=== PATIENT | female | born 1985 | race African-American/Black ===

== ENCOUNTER 2018-02-25 14:54 | Inpatient (IN) ==
[2018-02-25 15:58] LABS: Baso % (Auto) 0.5 % (0.0-2.0); Eos # (Auto) 0.1 th/mm3 (0.0-0.4); Eos % (Auto) 0.7 % (0.0-4.0); Hematocrit 39.9 % (35.0-46.0); Hemoglobin 13.8 gm/dL (11.6-15.3); Lymph # (Auto) 1.9 th/mm3 (1.0-4.8); Mean Corpuscular HGB Conc 34.7 % (32.0-36.0); Mean Corpuscular Volume 95.1 fL (80.0-100.0); Mean Platelet Volume 7.7 fL (7.0-11.0); Mono # (Auto) 0.6 th/mm3 (0.0-0.9); Mono % (Auto) 7.1 % (0.0-8.0); Neut # (Auto) 5.4 th/mm3 (1.8-7.7); Neut % (Auto) 67.7 % (16.0-70.0); Platelet Count 313 th/mm3 (150-450); Red Cell Distribution Width 12.5 % (11.6-17.2)
[2018-02-25 16:33] LABS: Albumin 4.5 g/dL (3.4-5.0); Anion Gap 8 meq/L (5-15); Aspartate Aminotransferase 24 U/L (15-37); Blood Urea Nitrogen 11 mg/dL (7-18); Calcium 8.8 mg/dL (8.5-10.1); Carbon Dioxide 28.3 meq/L (21.0-32.0); Chloride 106 meq/L (98-107); Glomerular Filtration Rate Greater Than 89 mL/min (>89); Glucose,Random 83 mg/dL (74-106); Magnesium 2.4 mg/dL (1.5-2.5); Sodium 142 meq/L (136-145)
[2018-02-25 16:43] LABS: Alanine Aminotransferase 36 U/L (10-53); Alkaline Phosphatase 79 U/L (45-117); Thyroid Stimulating Hormone 0.802 uIU/mL (0.358-3.740); Total Protein 8.2 g/dL (6.4-8.2)
--- NOTE | 2018-02-25 17:57 | ED ---
HPI General Chief Complaint: Psychiatric Symptoms Stated Complaint: Psych Eval/DBPD Time Seen by Provider: 02/25/18 16:09 Source: patient and other (Rodriguez act report) Mode of arrival: ambulatory Limitations: no limitations History of Present Illness HPI Narrative: 32-year-old female, with history of schizophrenia, presents to the emergency department under Rodriguez act. According to the Rodriguez act report the patient is unable to remember her name, does not know where she is or what year it is. Patient is diagnosed schizophrenic. And bipolar. She is not currently taking her prescribed medications. On my examination the patient is alert and oriented x4. She is staring, wide eyed. She is slow to answer questions. According to the nurse this is her normal behavior. She denies suicidal or homicidal ideations. Says she needs her meds to help with her schizophrenia. Denies illicit drug use, alcohol use. Denies hallucinations. Onset unknown. Duration most likely chronic. Symptoms are moderate to severe in severity. No known aggravating or relieving factors. Psychiatrist is Aris Bianchi. No known allergies. Patient denies any chest pain, shortness of breath, abdominal pain, nausea, vomiting, change in urine or stool. No other modifying factors or associated signs and symptoms. Related Data Home Medications Medication Instructions Recorded Confirmed hydroxyzine pamoate [Vistaril] 50 mg PO TID PRN 12/16/17 02/25/18 Previous Rx's Medication Instructions Recorded quetiapine [Seroquel] 200 mg PO BID #30 tab 12/16/17 Allergies Allergy/AdvReac Type Severity Reaction Status Date / Time No Known Allergies Allergy Verified 02/26/18 21:13 Review of Systems ROS: all other systems reviewed are negative [facility] Medical History Medical History Bipolar 1 disorder (Acute) Schizoaffective disorder (Acute) Social History Social History Substance History: Active Abuse Second Hand Smoke Exposure: No Smoking Status: Current every day smoker Tobacco Type: Cigarettes How Often Do You Have a Drink Containing Alcohol: Never Recent Travel in [facility] within the Last 8 Weeks: No Recent Out of Country Travel within the Last 8 Weeks: No Immunization History Tetanus Immunization: Unsure Exam Narrative Exam Narrative: GENERAL: Well-nourished, well-developed black female patient, in no acute distress; flat affect, wide eyed and staring SKIN: Warm and dry. HEAD: Atraumatic. Normocephalic. EYES: Pupils equal and round. ENT: Mucosa pink and moist. NECK: Supple. Trachea midline. CARDIOVASCULAR: Regular rate and rhythm. No murmur appreciated. RESPIRATORY: No accessory muscle use. Clear to auscultation. Breath sounds equal bilaterally. GASTROINTESTINAL: Abdomen soft, non-tender, nondistended. Hepatic and splenic margins not palpable. Bowel sounds are active 4 quadrants. MUSCULOSKELETAL: No obvious deformities. No clubbing. No cyanosis. No edema. BACK: No CVA tenderness. NEUROLOGICAL: Awake and alert. Oriented 4. No obvious cranial nerve deficits. Motor grossly within normal limits. Normal speech; slow to speak. Moves all extremities. 5/5 strength to all extremities. PSYCHIATRIC: No delusional thought processes. No hallucinations. Course Initial Documented Vital Signs Temperature 97.9 F 02/25/18 15:05 Pulse Rate 93 H 02/25/18 15:05 Respiratory Rate 18 02/25/18 15:05 Blood Pressure 115/72 02/25/18 15:05 Pulse Oximetry 98 02/25/18 15:05 Last Documented Vital Signs Temperature 98.7 F 02/28/18 06:00 Pulse Rate 100 H 02/28/18 06:00 Respiratory Rate 19 02/28/18 06:00 Blood Pressure 120/74 02/28/18 06:00 Pulse Oximetry 95 02/28/18 06:00 Medical Decision Making MDM Narrative Medical decision making narrative: Patient presents under a Rodriguez act. Physical examination and vital signs are essentially unremarkable. Patient has no medical complaints to report. Psych screen has been ordered. If the laboratory results are unremarkable, the patient will be medically cleared for psychiatric evaluation and disposition. Medical Screen Exam Complete: Yes Emergency Medical Condition: Yes Differential Diagnosis Differential Diagnosis: Schizophrenia, medication noncompliance, medical clearance for psychiatric evaluation Lab Data Result diagrams: 02/25/18 15:12 02/27/18 07:48 Lab Results 02/25/18 02/25/18 02/25/18 Range/Units 15:12 15:12 15:12 WBC 8.0 (4.0-11.0) th/mm3 RBC 4.20 (4.00-5.30) mil/mm3 Hgb 13.8 (11.6-15.3) gm/dL Hct 39.9 (35.0-46.0) % MCV 95.1 (80.0-100.0) fL MCH 33.0 (27.0-34.0) pg MCHC 34.7 (32.0-36.0) % RDW 12.5 (11.6-17.2) % Plt Count 313 (150-450) th/mm3 MPV 7.7 (7.0-11.0) fL Neut % (Auto) 67.7 (16.0-70.0) % Lymph % (Auto) 24.0 (9.0-44.0) % [place] % (Auto) 7.1 (0.0-8.0) % Eos % (Auto) 0.7 (0.0-4.0) % Baso % (Auto) 0.5 (0.0-2.0) % Neut # (Auto) 5.4 (1.8-7.7) th/mm3 Lymph # (Auto) 1.9 (1.0-4.8) th/mm3 [place] # (Auto) 0.6 (0.0-0.9) th/mm3 Eos # (Auto) 0.1 (0.0-0.4) th/mm3 Baso # (Auto) 0.0 (0.0-0.2) th/mm3 WBC Differential . Differential Comment Auto diff final Sodium (136-145) meq/L Potassium (3.5-5.1) meq/L Chloride (98-107) meq/L Carbon Dioxide (21.0-32.0) meq/L Anion Gap (5-15) meq/L BUN (7-18) mg/dL Creatinine (0.50-1.00) mg/dL Estimated GFR (>89) mL/min Random Glucose (74-106) mg/dL Hemoglobin A1c (4.3-6.0) % Calcium (8.5-10.1) mg/dL Magnesium (1.5-2.5) mg/dL Total Bilirubin (0.2-1.0) mg/dL AST (15-37) U/L ALT (10-53) U/L Alkaline Phosphatase (45-117) U/L Total Protein (6.4-8.2) g/dL Albumin (3.4-5.0) g/dL Triglycerides (42-150) mg/dL Cholesterol (120-200) mg/dL LDL Cholesterol, Calc (0-99) mg/dL HDL Cholesterol (40.0-60.0) mg/dL Cholesterol/HDL Ratio Ratio TSH (0.358-3.740) uIU/mL Beta HCG, Qual (0-5) mIU/mL Salicylates 2.4 L (2.8-20.0) mg/dL Urine Opiates Screen (Neg) Acetaminophen Less than 2.0 L (10.0-30.0) mcg/mL Ur Barbiturates Screen (Neg) Ur Amphetamines Screen (Neg) U Benzodiazepines Scrn (Neg) Urine Cocaine Screen (Neg) U Cannabinoids Screen (Neg) Serum Alcohol (0-5) mg/dL 02/25/18 02/25/18 02/25/18 Range/Units 15:12 15:12 15:40 WBC (4.0-11.0) th/mm3 RBC (4.00-5.30) mil/mm3 Hgb (11.6-15.3) gm/dL Hct (35.0-46.0) % MCV (80.0-100.0) fL MCH (27.0-34.0) pg MCHC (32.0-36.0) % RDW (11.6-17.2) % Plt Count (150-450) th/mm3 MPV (7.0-11.0) fL Neut % (Auto) (16.0-70.0) % Lymph % (Auto) (9.0-44.0) % [place] % (Auto) (0.0-8.0) % Eos % (Auto) (0.0-4.0) % Baso % (Auto) (0.0-2.0) % Neut # (Auto) (1.8-7.7) th/mm3 Lymph # (Auto) (1.0-4.8) th/mm3 [place] # (Auto) (0.0-0.9) th/mm3 Eos # (Auto) (0.0-0.4) th/mm3 Baso # (Auto) (0.0-0.2) th/mm3 WBC Differential Differential Comment Sodium 142 (136-145) meq/L Potassium 4.0 (3.5-5.1) meq/L Chloride 106 (98-107) meq/L Carbon Dioxide 28.3 (21.0-32.0) meq/L Anion Gap 8 (5-15) meq/L BUN 11 (7-18) mg/dL Creatinine 0.87 (0.50-1.00) mg/dL Estimated GFR Greater than 89 (>89) mL/min Random Glucose 83 (74-106) mg/dL Hemoglobin A1c (4.3-6.0) % Calcium 8.8 (8.5-10.1) mg/dL Magnesium 2.4 (1.5-2.5) mg/dL Total Bilirubin 0.9 (0.2-1.0) mg/dL AST 24 (15-37) U/L ALT 36 (10-53) U/L Alkaline Phosphatase 79 (45-117) U/L Total Protein 8.2 (6.4-8.2) g/dL Albumin 4.5 (3.4-5.0) g/dL Triglycerides (42-150) mg/dL Cholesterol (120-200) mg/dL LDL Cholesterol, Calc (0-99) mg/dL HDL Cholesterol (40.0-60.0) mg/dL Cholesterol/HDL Ratio Ratio TSH 0.802 (0.358-3.740) uIU/mL Beta HCG, Qual Less than 1.0 (0-5) mIU/mL Salicylates (2.8-20.0) mg/dL Urine Opiates Screen Neg (Neg) Acetaminophen (10.0-30.0) mcg/mL Ur Barbiturates Screen Neg (Neg) Ur Amphetamines Screen Neg (Neg) U Benzodiazepines Scrn Neg (Neg) Urine Cocaine Screen Neg (Neg) U Cannabinoids Screen Neg (Neg) Serum Alcohol Less than 3 (0-5) mg/dL 02/27/18 02/27/18 Range/Units 07:48 07:48 WBC (4.0-11.0) th/mm3 RBC (4.00-5.30) mil/mm3 Hgb (11.6-15.3) gm/dL Hct (35.0-46.0) % MCV (80.0-100.0) fL MCH (27.0-34.0) pg MCHC (32.0-36.0) % RDW (11.6-17.2) % Plt Count (150-450) th/mm3 MPV (7.0-11.0) fL Neut % (Auto) (16.0-70.0) % Lymph % (Auto) (9.0-44.0) % [place] % (Auto) (0.0-8.0) % Eos % (Auto) (0.0-4.0) % Baso % (Auto) (0.0-2.0) % Neut # (Auto) (1.8-7.7) th/mm3 Lymph # (Auto) (1.0-4.8) th/mm3 [place] # (Auto) (0.0-0.9) th/mm3 Eos # (Auto) (0.0-0.4) th/mm3 Baso # (Auto) (0.0-0.2) th/mm3 WBC Differential Differential Comment Sodium 138 (136-145) meq/L Potassium 3.5 (3.5-5.1) meq/L Chloride 103 (98-107) meq/L Carbon Dioxide 26.2 (21.0-32.0) meq/L Anion Gap 9 (5-15) meq/L BUN 9 (7-18) mg/dL Creatinine 0.84 (0.50-1.00) mg/dL Estimated GFR Greater than 89 (>89) mL/min Random Glucose 110 H (74-106) mg/dL Hemoglobin A1c 5.2 (4.3-6.0) % Calcium 8.5 (8.5-10.1) mg/dL Magnesium (1.5-2.5) mg/dL Total Bilirubin (0.2-1.0) mg/dL AST (15-37) U/L ALT (10-53) U/L Alkaline Phosphatase (45-117) U/L Total Protein (6.4-8.2) g/dL Albumin (3.4-5.0) g/dL Triglycerides 126 (42-150) mg/dL Cholesterol 214 H (120-200) mg/dL LDL Cholesterol, Calc 147 H (0-99) mg/dL HDL Cholesterol 41.9 (40.0-60.0) mg/dL Cholesterol/HDL Ratio 5.10 Ratio TSH (0.358-3.740) uIU/mL Beta HCG, Qual (0-5) mIU/mL Salicylates (2.8-20.0) mg/dL Urine Opiates Screen (Neg) Acetaminophen (10.0-30.0) mcg/mL Ur Barbiturates Screen (Neg) Ur Amphetamines Screen (Neg) U Benzodiazepines Scrn (Neg) Urine Cocaine Screen (Neg) U Cannabinoids Screen (Neg) Serum Alcohol (0-5) mg/dL Discharge Plan Discharge Disposition Patient Disposition: 30 Still Patient Discharge Condition Condition: Stable Physicians Team ED Provider: Eli Rodriguez ED Midlevel Provider: Danette Burks Primary Care Provider: Primary Care Magali Loera Attending Provider: Pablito Reyna Other Providers: Rich Pacheco ED Status: Left Department Discharge Information Discharge Date/Time: 02/26/18 13:59
[2018-02-25 19:05] LABS: Amphetamine Screen,Urine Neg (Neg); Barbiturate Screen,Urine Neg (Neg); Cannabinoid Screen,Urine Neg (Neg); Cocaine Screen,Urine Neg (Neg)
[2018-02-25 19:20] LABS: Opiate Screen,Urine Neg (Neg)
[2018-02-26] MEDS ORDERED: Aluminum/Magnesium/Simethacone Susp 30 ML UDC PO PRN (10:15)
[2018-02-26] MEDS ORDERED: Bisacodyl 10 MG Supp RECTAL PRN (10:15)
[2018-02-26] MEDS ORDERED: Haloperidol Inj 5 MG/ML Ampul ONE (11:52)
--- NOTE | 2018-02-26 15:16 | P.HPPSY ---
Provisional Diagnosis Admission Date: February 26, 2018 10:16 [place] I.: Schizophrenia Competence Certification of Person's Competence To Provide Express and Informed Consent I have personally examined German Enamorado, a person being served at [facility] on, February 26, 2018 1511. Express and informed consent means consent voluntarily given in writing, by a competent person, after sufficient explanation and disclosure of the subject matter involved to enable the person to make a knowing and willful decision without any element of force, fraud, deceit, duress, or other form of constraint or coercion. This person is 18 years of age or older, is not now known to be incompetent to consent to treatment with a guardian advocate, and does not have a health care surrogate or proxy currently making medical treatment decisions. I have found this person to be one of the following: [] Competent to provide express and informed consent, as defined above, for voluntary admission to this facility and is competent to provide express and informed consent for treatment. He/she has the consistent capacity to make well reasoned, willful, and knowing decisions concerning his or her medical or mental health treatment. The person fully and consistently understands the purpose of the admission for examination/placement and is fully capable of personally exercising all rights assured [place] [] Incompetent to provide express and informed consent to voluntary admission, and this is incompetent to provide express and informed consent to treatment. The person must be transferred to involuntary status and a petition for a guardian advocate filed with the Circuit Court. []x Refusing to provide express and informed consent to voluntary admission but is competent to provide express and informed consent for treatment. The person must be discharged or transferred to involuntary status. Form shall be completed within 24 hours of a person's arrival at the receiving facility and filed in the clinical record of each person: 1. Admitted on a voluntary basis 2. Permitted to provide express and informed consent to his/her own treatment 3. Allowed to transfer from involuntary to voluntary status 4. Prior to permitting a person to consent to his or her own treatment after having been previously found incompetent to consent to treatment. History of Present Illness Capacity: Has capacity History of Present Illness: The patient is a 32-year-old -[place] woman, single, unemployed, domiciled in [facility], supported by [employer], with a significant psychiatric history of schizophrenia, previous psychiatric admissions, she has been seeing in the [facility] and [facility] twice in the last month, she is on Seroquel 200 mg, no significant medical history, who presents to the emergency department under Rodriguez act. According to the Rodriguez act report the patient is unable to remember her name, does not know where she is or what year it is. She is not currently taking her prescribed medications. In the ER given her disruptive behavior, aggressiveness, agitation and poor sensitivity to verbal de-escalation, the patient had to be medicated with Haldol 5 mg IM, Ativan 2 mg IM, and posteriorly with olanzapine 10 mg IM. On my psychiatric evaluation I find the patient that is quite sedated, unable to provide any meaningful psychiatric information for the psychiatric assessment. Sucked and wet with urine and face. Nurses reported that the patient has being secluded, very paranoid, nonverbal, but at times will say that she feels afraid like other people are going to kill her. PPHx: Schizophrenia, bipolar disorder, multiple psychiatric admissions, the patient is Seroquel 200 mg PMHx: No medical history Family HX: Patient denies family psychiatric history Substance Hx: Patient denies the use of illegal drugs or alcohol, U tox is negative Social Hx: -[place] lady who lives in the [facility], single, unemployed, on SSI - Inpatient Certification I certify that the inpatient services were ordered in accordance with Medicare regulations governing the order. This includes certification that hospital inpatient services are reasonable and necessary and in the case of services not specified as inpatient-only under 42 CFR 419.22(n), that they are appropriately provided as inpatient services in accordance to with the 2-midnight benchmark under 43 CFR 412.3(e) I certify that inpatient psychiatric hospital services are medically necessary. Evaluation and treatment and/or diagnostic testing are expected to improve the patient's condition. The patient needs on a daily basis, active treatment furnished directly by or requiring the supervision of inpatient psychiatric facility personnel. Estimated Total Length of Stay (Days): 7 Plans for Post Hospital Care: prison Review of Systems All other systems reviewed negative except as stated in HPI Psychiatric: Reports panic attacks, Reports paranoia, Reports seeing things others do not see, Reports thoughts of hurting/killing yourself PMFSH - History History Provided By: Patient - Medical History Medical History: Medical History (Last Reviewed 02/25/18 @ 17:56 by POP Horowitz) Bipolar 1 disorder Schizoaffective disorder - Surgical History Surgical History: Surgical History (Last Reviewed 02/25/18 @ 15:08 by Jess Lezama) H/O section - Tobacco History Second Hand Smoke Exposure: No Tobacco Use In Past 30 Days: Yes Smoking Status: Current every day smoker Tobacco Type: Cigarettes - Alcohol History How Often Do You Have a Drink Containing Alcohol: Never - Substance Use History Substance History: Unable to Obtain - Travel History Recent Travel in the [place] Within the Last 8 Weeks: No Recent Travel Out of the Country Within the Last 8 Weeks: No - Immunization History Tetanus Immunization: Unsure Medications and Allergies Active Medications: Active Medications Al Hydrox/Mg Hydrox/Simethicone (Mag-Al Plus Susp Liq) 30 ml PO Q6H PRN PRN Reason: DYSPEPSIA Al Hydroxide/Mg Hydroxide (Milk Of Magnesia Liq) 30 ml PO Q12H PRN PRN Reason: Mild Constipation Bisacodyl (Dulcolax Supp) 10 mg RECTAL DAILY PRN PRN Reason: SEVERE CONSITIPATION Lactulose (Lactulose Liq) 30 ml PO DAILY PRN PRN Reason: SEVERE CONSITIPATION Quetiapine Fumarate (Seroquel) 200 mg PO BID [facility] Last Admin: 02/26/18 13:58 Dose: Not Given Senna/Docusate Sodium (Jenn-Colace) 1 tab PO BID [facility] Sennosides (Senokot) 17.2 mg PO Q12H PRN PRN Reason: Moderate Constipation Allergies Allergy/AdvReac Type Severity Reaction Status Date / Time No Allergy Information Allergy Verified 02/25/18 15:05 Available Home Medications Medication Instructions Recorded Confirmed Type hydroxyzine pamoate [Vistaril] 50 mg PO TID PRN 12/16/17 02/25/18 History Results - Labs CBC & Chem 7: 02/25/18 15:12 02/25/18 15:12 Labs: Laboratory Results - last 24 hr 02/25/18 02/25/18 02/25/18 15:12 15:12 15:12 WBC 8.0 RBC 4.20 Hgb 13.8 Hct 39.9 MCV 95.1 MCH 33.0 MCHC 34.7 RDW 12.5 Plt Count 313 MPV 7.7 Neut % (Auto) 67.7 Lymph % (Auto) 24.0 [place] % (Auto) 7.1 Eos % (Auto) 0.7 Baso % (Auto) 0.5 Neut # (Auto) 5.4 Lymph # (Auto) 1.9 [place] # (Auto) 0.6 Eos # (Auto) 0.1 Baso # (Auto) 0.0 WBC Differential . Differential Comment Auto diff final Sodium Potassium Chloride Carbon Dioxide Anion Gap BUN Creatinine Estimated GFR Random Glucose Calcium Magnesium Total Bilirubin AST ALT Alkaline Phosphatase Total Protein Albumin TSH Beta HCG, Qual Salicylates 2.4 L Urine Opiates Screen Acetaminophen Less than 2.0 L Ur Barbiturates Screen Ur Amphetamines Screen U Benzodiazepines Scrn Urine Cocaine Screen U Cannabinoids Screen Serum Alcohol 02/25/18 02/25/18 02/25/18 15:12 15:12 15:40 WBC RBC Hgb Hct MCV MCH MCHC RDW Plt Count MPV Neut % (Auto) Lymph % (Auto) [place] % (Auto) Eos % (Auto) Baso % (Auto) Neut # (Auto) Lymph # (Auto) [place] # (Auto) Eos # (Auto) Baso # (Auto) WBC Differential Differential Comment Sodium 142 Potassium 4.0 Chloride 106 Carbon Dioxide 28.3 Anion Gap 8 BUN 11 Creatinine 0.87 Estimated GFR Greater than 89 Random Glucose 83 Calcium 8.8 Magnesium 2.4 Total Bilirubin 0.9 AST 24 ALT 36 Alkaline Phosphatase 79 Total Protein 8.2 Albumin 4.5 TSH 0.802 Beta HCG, Qual Less than 1.0 Salicylates Urine Opiates Screen Neg Acetaminophen Ur Barbiturates Screen Neg Ur Amphetamines Screen Neg U Benzodiazepines Scrn Neg Urine Cocaine Screen Neg U Cannabinoids Screen Neg Serum Alcohol Less than 3 Exam Vital signs: Vital Signs 02/25/18 18:29 02/25/18 23:32 02/26/18 06:23 Temperature 98.2 F Pulse Rate 98 H 102 H 85 Respiratory Rate 18 14 14 Blood Pressure 123/73 120/82 124/81 Pulse Oximetry 100 98 98 02/26/18 14:00 Temperature 98.2 F Pulse Rate 111 H Respiratory Rate 17 Blood Pressure 127/82 Pulse Oximetry Intake & Output 02/25/18 02/26/18 02/26/18 18:59 06:59 18:59 Weight 81.647 kg 77.9 kg Other: Weight On Admission 77.9 kg Narrative: Patient has marked psychomotor retardation, sedated at this moment, no EPS present, no withdrawal present - Constitutional mild distress, moderate distress - Routine HEENT Exam Head: Present: normocephalic, atraumatic Eye: Present: EOMI, PERRL, normal accommodation ENT: Present: mucous membranes moist Mental Status Examination Appearance: Disheveled, Malodorous Consciousness: Alert Orientation: x4 Motor Activity: Normal gait Speech: Unremarkable Language: Adequate Fund of Knowledge: Adequate Attention and Concentration: Adequate Memory: Unremarkable Mood: Oppositional Affect: Blunt Thought Process & Associations: Loose associations Thought Content: Appropriate, Thought blocking, Delusional Hallucination Type: Auditory Delusion Type: Bizarre, Paranoid Suicidal Ideation: No Suicidal Plan: No Suicidal Intention: No Homicidal Ideation: No Homicidal Plan: No Homicidal Intention: No Insight: Poor Judgment: Poor Assessment and Plan - Assessment (1) Schizophrenia Code(s): F20.9 - Schizophrenia, unspecified Status: Acute - Plan Plan: On psychiatric evaluation today the patient presents sedated, poorly cooperative , nonverbal, she was previously medicated with Haldol 5 mg IM, Ativan 1 mg IM, and minutes later with olanzapine 10 mg IM due to the level of disruptive behavior and disorganization in the unit. The patient has been reported very paranoid, internally preoccupied, agitated and not able to follow verbal commands. There is a patient with a psychiatric history of schizophrenia, prepsychotic admissions. Given her level of psychosis the patient will be admitted to psychiatry for stabilization and safety. We will start Seroquel 100 mg twice daily. Consult psychiatry for second opinion. Patient will be transferred to [facility] unit. Justification for Continued Inpatient Stay: To be admitted
[2018-02-26] MEDS: Senna/Docusate Sodium 8.6/50 MG Tablet PO SCH (20:25)
[2018-02-27 09:31] LABS: Anion Gap 9 meq/L (5-15); Blood Urea Nitrogen 9 mg/dL (7-18); Calcium 8.5 mg/dL (8.5-10.1); Carbon Dioxide 26.2 meq/L (21.0-32.0); Chloride 103 meq/L (98-107); Glomerular Filtration Rate Greater Than 89 mL/min (>89); Glucose,Random 110 mg/dL (74-106); Potassium 3.5 meq/L (3.5-5.1); Sodium 138 meq/L (136-145)
[2018-02-27 09:33] LABS: Cholesterol 214 mg/dL (120-200)
[2018-02-27 09:34] LABS: HDL Cholesterol 41.9 mg/dL (40.0-60.0); LDL Cholesterol,Calculated 147 mg/dL (0-99); Triglycerides 126 mg/dL (42-150)
[2018-02-27] MEDS: Senna/Docusate Sodium 8.6/50 MG Tablet PO SCH ×2 (11:22→20:12)
[2018-02-27 13:31] LABS: Hemoglobin A1c 5.2 % (4.3-6.0)
--- NOTE | 2018-02-27 16:39 | P.PNPSY ---
Subjective Remarks: This is a request for second opinion. Admission note was reviewed and I agree with the history. Patient was seen and case was discussed with nursing. Patient has poor eye contact and appears internally stimulated. She is walking in various directions throughout the interview. There is psychomotor retardation. No outbursts today. Mental Status Examination Appearance: Disheveled, Malodorous Consciousness: Alert Orientation: x4 Motor Activity: Normal gait Speech: Unremarkable Language: Adequate Fund of Knowledge: Adequate Attention and Concentration: Adequate Memory: Unremarkable Mood: Oppositional Affect: Blunt Thought Process & Associations: Loose associations Thought Content: Appropriate, Thought blocking, Delusional Hallucination Type: Auditory Delusion Type: Bizarre, Paranoid Suicidal Ideation: No Suicidal Plan: No Suicidal Intention: No Homicidal Ideation: No Homicidal Plan: No Homicidal Intention: No Insight: Poor Judgment: Poor Assessment and Plan - Assessment (1) Schizophrenia Code(s): F20.9 - Schizophrenia, unspecified Status: Acute - Plan Plan: I agree with the first opinion to continue petition. Criteria include acute psychosis Justification for Continued Inpatient Stay: Patient would decompensate in a less restrictive setting
[2018-02-28] MEDS: Senna/Docusate Sodium 8.6/50 MG Tablet PO SCH ×2 (08:16→20:06)
--- NOTE | 2018-02-28 14:43 | P.PNPSY ---
Subjective Remarks: Reviewed electronic medical records and discussed case with staff. Follow-up was conducted in the day room. Patient is pacing the hallway and extremely paranoid. She is delusional and internally stimulated. She asked SERGIO Vasquez for more medication and for help with auditory hallucinations. Thought blocking and when she does speak tangential. The nursing staff reports that she has been in distress most of the day. Yesterday she was given emergency treatment medications because a similiar situation occurred that escalated requiring injections. I spoke with Dr. Moody and he recommended an increase in the Seroquel. Review of Systems All other systems reviewed negative except as stated in HPI Mental Status Examination Appearance: Disheveled, Malodorous Consciousness: Alert Orientation: x4 Motor Activity: Normal gait Speech: Unremarkable Language: Adequate Fund of Knowledge: Adequate Attention and Concentration: Adequate Memory: Unremarkable Mood: Oppositional Affect: Blunt Thought Process & Associations: Loose associations Thought Content: Appropriate, Thought blocking, Delusional Hallucination Type: Auditory Delusion Type: Bizarre, Paranoid Suicidal Ideation: No Suicidal Plan: No Suicidal Intention: No Homicidal Ideation: No Homicidal Plan: No Homicidal Intention: No Insight: Poor Judgment: Poor Assessment and Plan - Assessment (1) Schizophrenia Code(s): F20.9 - Schizophrenia, unspecified Status: Acute - Plan Plan: Continue current treatment plan. Increase Seroquel from 200 mg bid to 200 mg in am and 300 mg qhs. Justification for Continued Inpatient Stay: Moving patient to a less restrictive environment may result in her decompensation.
[2018-03-01] MEDS: Senna/Docusate Sodium 8.6/50 MG Tablet PO SCH ×2 (08:21→21:01)
--- NOTE | 2018-03-01 14:11 | P.PNPSY ---
Subjective Remarks: Reviewed electronic medical records and discussed case with staff. Follow-up was conducted in the day room with SERGIO Vasquez present. The patient is found to be nearly catatonic. She has delayed speech, masked face, and psychomotor retardation. She is unable to answer questions or interact on any level. I consulted with Dr. Vazquez and the patient has been ordered 2 mg IM Ativan for an Ativan challenge. If successful, the patient will be placed on 2 mg Ativan p.o. every 6 hours. Mental Status Examination Appearance: Disheveled, Malodorous Consciousness: Alert Orientation: x4 Motor Activity: Normal gait Speech: Unremarkable Language: Adequate Fund of Knowledge: Adequate Attention and Concentration: Adequate Memory: Unremarkable Mood: Oppositional Affect: Blunt Thought Process & Associations: Loose associations Thought Content: Appropriate, Thought blocking, Delusional Hallucination Type: Auditory Delusion Type: Bizarre, Paranoid Suicidal Ideation: No Suicidal Plan: No Suicidal Intention: No Homicidal Ideation: No Homicidal Plan: No Homicidal Intention: No Insight: Poor Judgment: Poor Assessment and Plan - Assessment (1) Schizophrenia Code(s): F20.9 - Schizophrenia, unspecified Status: Acute - Plan Plan: Patient will be reevaluated by the attending psychiatrist. Continue with current treatment plan. We will continue to monitor the patient's catatonic symptoms and it I anticipate implementing a change in her medication regimen. Justification for Continued Inpatient Stay: Moving this patient to a less restrictive environment would likely result in decompensation.
[2018-03-02] MEDS: Senna/Docusate Sodium 8.6/50 MG Tablet PO SCH ×2 (08:37→21:09)
[2018-03-02] MEDS ORDERED: LORazepam 1 MG Tablet PO SCH (12:45)
[2018-03-02] MEDS: LORazepam 1 MG Tablet PO SCH ×2 (15:23→21:08)
--- NOTE | 2018-03-02 16:38 | P.PNPSY ---
Subjective Remarks: Reviewed electronic medical records and discussed case with staff. Follow-up was conducted in the hallway with SERGIO Silva present. Patient is doing much better and was able to be moved to the 2600 unit. Staff reports she has been compliant with her medications. Patient reports she still has intermittent auditory hallucinations. She states that they tell her negative things such as "I am no good". She reports that she slept a lot and does still appear drowsy. Her Ativan dosage has been decreased to 1 mg every 6 hours. She states that her appetite is been "okay". She is requesting STD checks and prophylactic medicine based on a recent sexual encounter. Mental Status Examination Appearance: Disheveled, Malodorous Consciousness: Alert Orientation: x4 Motor Activity: Normal gait Speech: Unremarkable Language: Adequate Fund of Knowledge: Adequate Attention and Concentration: Adequate Memory: Unremarkable Mood: Oppositional Affect: Blunt Thought Process & Associations: Loose associations Thought Content: Appropriate, Thought blocking, Delusional Hallucination Type: Auditory Delusion Type: Bizarre, Paranoid Suicidal Ideation: No Suicidal Plan: No Suicidal Intention: No Homicidal Ideation: No Homicidal Plan: No Homicidal Intention: No Insight: Poor Judgment: Poor Assessment and Plan - Assessment (1) Schizophrenia Code(s): F20.9 - Schizophrenia, unspecified Status: Acute - Plan Plan: Patient will be reevaluated by the attending psychiatrist. Continue with current treatment plan. After consulting with Dr. Moody I will order a medical consult for STd checks and treatment as indicated. Justification for Continued Inpatient Stay: Moving this patient to a less restrictive environment would likely result in decompensation.
[2018-03-02 22:03] LABS: Hepatitis A IgM Antibody Nonreactive (Nonreactive); Hepatitits B Surface Antigen Nonreactive (Nonreactive)
--- NOTE | 2018-03-02 22:03 | XR ---
EXAM DATE: 03/02/2018 10:00 PM EST AGE/SEX: 32 years / Female INDICATIONS: Right ankle pain after twist and fall. CLINICAL DATA: This is the patient's initial encounter. Patient reports that signs and symptoms have been present for 1 day and indicates a pain score of 2/10. MEDICAL/SURGICAL HISTORY: None. None. COMPARISON: No prior exams available for comparison. FINDINGS: Bony structures are intact and in normal alignment. Joints are intact without dislocation or signifi cant arthropathy. Osseous density is normal. Soft tissues are unremarkable. No radiopaque foreign bodies seen. CONCLUSION: No fracture or subluxation of the right ankle. Electronically signed by: Chevy Chowdhury MD 03/02/2018 10:02 PM EST
--- NOTE | 2018-03-02 22:04 | XR ---
EXAM DATE: 03/02/2018 10:01 PM EST AGE/SEX: 32 years / Female INDICATIONS: Left knee pain post fall. CLINICAL DATA: This is the patient's initial encounter. Patient reports that signs and symptoms have been present for 1 day and indicates a pain score of 2/10. MEDICAL/SURGICAL HISTORY: None. None. COMPARISON: No prior exams available for comparison. FINDINGS: Bony structures are intact and in normal alignment. Joints are intact without dislocation or signifi cant arthropathy. Osseous density is normal. Soft tissues are unremarkable. No perceptible joint e ffusion. No radiopaque foreign bodies seen. CONCLUSION: No fracture or subluxation of the left knee. Electronically signed by: Chevy Chowdhury MD 03/02/2018 10:02 PM EST
[2018-03-03] MEDS: LORazepam 1 MG Tablet PO SCH ×4 (03:33→21:20)
[2018-03-03] MEDS: Senna/Docusate Sodium 8.6/50 MG Tablet PO SCH ×2 (08:42→21:12)
--- NOTE | 2018-03-03 13:04 | P.PNPSY ---
Subjective Remarks: The patient was seen today for psychiatric reevaluation. The case was widely discussed with nursing charge. The patient was seen in the recreational area, [facility], which she was found talking with other patients. The patient is calm, superficially cooperative, and still with some slow speech and flat affect , a little bit suspicious and internally preoccupied, but able to answer all my questions. She reports that she feels much better today, she is slept about 6 hours last night, she reports good appetite, good level of energy. She does say that the reason she was not talking "is because I had a microchip inside my head". In the unit she has being at times paranoid, making accusations, but redirectable. Compliant with her medications, no significant side effects. Mental Status Examination Appearance: Disheveled, Malodorous Consciousness: Alert Orientation: x4 Motor Activity: Normal gait Speech: Unremarkable Language: Adequate Fund of Knowledge: Adequate Attention and Concentration: Adequate Memory: Unremarkable Mood: Oppositional Affect: Blunt Thought Process & Associations: Loose associations Thought Content: Appropriate, Thought blocking, Delusional Hallucination Type: Auditory Delusion Type: Bizarre, Paranoid Suicidal Ideation: No Suicidal Plan: No Suicidal Intention: No Homicidal Ideation: No Homicidal Plan: No Homicidal Intention: No Insight: Poor Judgment: Poor Assessment and Plan - Assessment (1) Schizophrenia Code(s): F20.9 - Schizophrenia, unspecified Status: Acute - Plan Plan: I will increase the Ativan 1 mg at bedtime for catatonic symptoms. Continue Seroquel at the same dose. Support, motivational psych education provided. Justification for Continued Inpatient Stay: Patient continues to be psychotic, catatonic, she needs to continue psychiatric admission for stabilization and safety
[2018-03-03] MEDS ORDERED: LORazepam 1 MG Tablet PO ONE (21:00)
[2018-03-04] MEDS: LORazepam 1 MG Tablet PO SCH ×4 (03:53→20:35)
[2018-03-04] MEDS: Senna/Docusate Sodium 8.6/50 MG Tablet PO SCH ×2 (08:09→20:37)
--- NOTE | 2018-03-04 15:35 | P.PNPSY ---
Subjective Remarks: Patient was seen today for psychiatric reevaluation. She was also seen in [facility]. The patient has showed mild improvement of her catatonia, but continues to be stiff, with a speech delay, significant thought blocking, lack of motivation. The patient also is a little bit disorganized and paranoid, internally preoccupied. She has been compliant with medications, no significant side effects reported. No agitation, no aggressive behavior reported. She is eating over 50% of her food now. Mental Status Examination Appearance: Disheveled, Malodorous Consciousness: Alert Orientation: x4 Motor Activity: Normal gait Speech: Unremarkable Language: Adequate Fund of Knowledge: Adequate Attention and Concentration: Adequate Memory: Unremarkable Mood: Oppositional Affect: Blunt Thought Process & Associations: Loose associations Thought Content: Appropriate, Thought blocking, Delusional Hallucination Type: Auditory Delusion Type: Bizarre, Paranoid Suicidal Ideation: No Suicidal Plan: No Suicidal Intention: No Homicidal Ideation: No Homicidal Plan: No Homicidal Intention: No Insight: Poor Judgment: Poor Assessment and Plan - Assessment (1) Schizophrenia Code(s): F20.9 - Schizophrenia, unspecified Status: Acute - Plan Plan: Patient continues to be catatonic, with mild to moderate improvement. Disorganized, internally preoccupied. Compliant with medications, no significant side effects. Today no changes in medications. Try to engage the patient in activities. Justification for Continued Inpatient Stay: Patient is psychotic/catatonic, needs to continue psychiatric hospitalization for stabilization.
[2018-03-05] MEDS: LORazepam 1 MG Tablet PO SCH ×5 (03:10→22:36)
[2018-03-05] MEDS: Senna/Docusate Sodium 8.6/50 MG Tablet PO SCH ×2 (08:50→21:11)
--- NOTE | 2018-03-05 16:06 | P.PNPSY ---
Subjective Remarks: Patient seen for follow-up, chart reviewed. Discussion with nursing staff reported that patient noted to be somnolent today continues to be guarded and internally preoccupied at times. Patient was found lying hospital bed noted be somnolent for interview today having to be woken up several times to continue to interact and engage in interview today. Patient states she is trying to get some rest that she states feeling tired reporting less auditory hallucinations which she states there is now being more quiet. Patient states that she is feeling sad due to her missing her children and want to spend more time outside. Review of Systems All other systems reviewed negative except as stated in HPI Mental Status Examination Appearance: Disheveled Consciousness: Somnolent Orientation: x4 Motor Activity: Normal gait Speech: Unremarkable Language: Adequate Fund of Knowledge: Adequate Attention and Concentration: Adequate Memory: Unremarkable Mood: Sad Affect: Other (Somnolent) Thought Process & Associations: Other ([place]) Thought Content: Appropriate, Hallucinations, Delusional Hallucination Type: Auditory Delusion Type: Bizarre, Paranoid Suicidal Ideation: No Suicidal Plan: No Suicidal Intention: No Homicidal Ideation: No Homicidal Plan: No Homicidal Intention: No Insight: Poor Judgment: Poor Assessment and Plan - Assessment (1) Schizophrenia Code(s): F20.9 - Schizophrenia, unspecified Status: Acute - Plan Plan: Patient continues with auditory hallucinations but stated it is decreasing also noted to be very somnolent today which interview today has been limited due to sedating effects of current regimen. We will decrease Ativan to 1 mg every 8 hours with plan for taper as patient continues to to be noted to have no further signs and symptoms of catatonia. We will continue rest of medications and continue to monitor mood and behavior. Discharge planning in progress. Justification for Continued Inpatient Stay: At risk of further decompensation at lower level care.
[2018-03-06] MEDS: LORazepam 1 MG Tablet PO SCH ×3 (06:13→23:02)
[2018-03-06] MEDS: Senna/Docusate Sodium 8.6/50 MG Tablet PO SCH ×2 (08:28→20:09)
--- NOTE | 2018-03-06 11:37 | P.PNPSY ---
Subjective Remarks: Patient was seen and case discussed with nursing. Per nursing patient has somatic preoccupations. Describes voices today is "a little bit." She has asking about her discharge. She does remained internally preoccupied with a flat affect, nonspontaneous speech Mental Status Examination Appearance: Disheveled Consciousness: Somnolent Orientation: x4 Motor Activity: Normal gait Speech: Unremarkable Language: Adequate Fund of Knowledge: Adequate Attention and Concentration: Adequate Memory: Unremarkable Mood: Sad Affect: Other (Somnolent) Thought Process & Associations: Other ([place]) Thought Content: Appropriate, Hallucinations, Delusional Hallucination Type: Auditory Delusion Type: Bizarre, Paranoid Suicidal Ideation: No Suicidal Plan: No Suicidal Intention: No Homicidal Ideation: No Homicidal Plan: No Homicidal Intention: No Insight: Poor Judgment: Poor Assessment and Plan - Assessment (1) Schizophrenia Code(s): F20.9 - Schizophrenia, unspecified Status: Acute - Plan Plan: Continue current treatment plan Justification for Continued Inpatient Stay: Patient would decompensate in a less restrictive setting
[2018-03-07] MEDS: LORazepam 1 MG Tablet PO SCH (06:01)
[2018-03-07] MEDS: Senna/Docusate Sodium 8.6/50 MG Tablet PO SCH ×2 (09:03→20:47)
--- NOTE | 2018-03-07 12:06 | P.PNPSY ---
Subjective Remarks: Medical record reviewed and discussed with nursing staff. Patient in bed in her room. States that she is extremely tired and just wants to take her Seroquel. Denies any voices at this time. Catatonia resolved. Will titrate Lorazepam to 0.5 mg bid. Patient states she is feeling better. No behavioral concerns. No SI/HI. Review of Systems All other systems reviewed negative except as stated in HPI Mental Status Examination Appearance: Appropriate Consciousness: Somnolent Orientation: x4 Motor Activity: Normal gait Speech: Unremarkable Language: Adequate Fund of Knowledge: Adequate Attention and Concentration: Adequate Memory: Unremarkable Mood: Sad Affect: Other (Somnolent) Thought Process & Associations: Other ([place]) Thought Content: Appropriate Hallucination Type: None, Auditory Delusion Type: Paranoid Suicidal Ideation: No Suicidal Plan: No Suicidal Intention: No Homicidal Ideation: No Homicidal Plan: No Homicidal Intention: No Insight: Fair Judgment: Impulsive Assessment and Plan - Assessment (1) Schizophrenia Code(s): F20.9 - Schizophrenia, unspecified Status: Acute - Plan Plan: Continue current treatment plan Justification for Continued Inpatient Stay: Moving patient to a less restrictive environment may result in her decompensation.
[2018-03-07] MEDS: LORazepam 0.5 MG Tablet PO PRN (14:25)
[2018-03-08] MEDS: Senna/Docusate Sodium 8.6/50 MG Tablet PO SCH ×2 (08:43→23:07)
--- NOTE | 2018-03-08 09:48 | P.TTN ---
- Patient Problems Problems: 1. Discharge planning 2. Medication compliance 3. Knowledge deficit 4. Lack of coping skills - Progress Toward Goals Provider Present: Dr. Willie Hoyt (Patient was catatonic, patient appears to be improving but remains sedated and in need of further stabilization.) Psychiatric Counselors Present: Noe Bowen Jr., [facility], [place] (Patient will go to [facility] assisted living facility when stable.) Group Spec/RT/OT/COLBERT Present: SAYRA Morin (Patient attends select groups but has difficulty tolerating most activities.) - Documentation Teaching Recipient: Patient
[2018-03-08] MEDS: LORazepam 0.5 MG Tablet PO PRN ×2 (16:38→23:07)
[2018-03-08] MEDS: QUEtiapine 100 MG Tablet PO SCH ×2 (20:54→20:56)
[2018-03-09] MEDS: LORazepam 0.5 MG Tablet PO PRN ×2 (06:37→23:41)
[2018-03-09] MEDS: Senna/Docusate Sodium 8.6/50 MG Tablet PO SCH ×2 (08:26→21:32)
--- NOTE | 2018-03-09 14:25 | P.PNPSY ---
Subjective Remarks: Patient seen for follow up; chart reviewed. Discussion with nursing staff reported less lethargic, compliant slept well and visible on the unit. Patient was found sitting hospital bed noted to be somewhat anxious during interview. She states her weekend went "uneventful" stating that she was irritable this morning as if her clothing and she states did not feel comfortable going to groups in hospital gown. She states that he slept well last night, stating that her thoughts are clearing up but continues to have paranoid ideation but denying any perceptional services. Patient also upset that she will unable to have items patient when she had been requesting nursing for such as Chapstick. Review of Systems All other systems reviewed negative except as stated in HPI Mental Status Examination Appearance: Appropriate Consciousness: Somnolent (Less so today) Orientation: x4 Motor Activity: Normal gait Speech: Unremarkable Language: Adequate Fund of Knowledge: Adequate Attention and Concentration: Adequate Memory: Unremarkable Mood: Anxious Affect: Anxious Thought Process & Associations: Other ([place]) Thought Content: Appropriate Hallucination Type: None Delusion Type: Paranoid Suicidal Ideation: No Suicidal Plan: No Suicidal Intention: No Homicidal Ideation: No Homicidal Plan: No Homicidal Intention: No Insight: Fair Judgment: Impulsive Assessment and Plan - Assessment (1) Schizophrenia Code(s): F20.9 - Schizophrenia, unspecified Status: Acute - Plan Plan: Patient continues with paranoid ideation, continues with hypervigilance on the unit and attending groups. We will continue to titrate quetiapine for psychosis. We will order Chapstick for patient. We will request occupational therapist/activity therapist to assist in acquiring clothing for patient. Continue monitor mood and behavior. Discharge planning a progress. Justification for Continued Inpatient Stay: At risk of further decompensation at lower level care.
--- NOTE | 2018-03-09 14:37 | P.PNPSY ---
Subjective Remarks: Patient seen for follow-up, chart reviewed. Discussion with nursing staff reported that patient decreased paranoia with peers, slept better, denying any auditory hallucinations. she is so depressed she is so patient was found sitting hospital bed noted become cooperative. Patient states that she is having less paranoia stating that she is able to attend groups today with less anxiety. Patient deny any auditory hallucinations. Patient reports having slept well with good appetite and happy about having received clothing from the activity therapist. Patient noted to be less paranoid today and with more reactive affect. Review of Systems All other systems reviewed negative except as stated in HPI Mental Status Examination Appearance: Appropriate Consciousness: Alert Orientation: x4 Motor Activity: Normal gait Speech: Unremarkable Language: Adequate Fund of Knowledge: Adequate Attention and Concentration: Adequate Memory: Unremarkable Mood: Appropriate Affect: Appropriate Thought Process & Associations: Other ([place]) Thought Content: Appropriate Hallucination Type: None Delusion Type: Paranoid (decreasing) Suicidal Ideation: No Suicidal Plan: No Suicidal Intention: No Homicidal Ideation: No Homicidal Plan: No Homicidal Intention: No Insight: Fair Judgment: Impulsive Assessment and Plan - Assessment (1) Schizophrenia Code(s): F20.9 - Schizophrenia, unspecified Status: Acute - Plan Plan: Patient this time noted with less paranoia noted be more reactive and has been participating in groups now. We will continue current treatment. We will continue to monitor mood and behavior. Patient likely for discharge tomorrow. Justification for Continued Inpatient Stay: At risk of further decompensation at lower level care.
[2018-03-09 17:18] VITALS: O2SAT 98
[2018-03-09] MEDS: QUEtiapine 100 MG Tablet PO SCH (21:30)
[2018-03-10 06:12] VITALS: BP 100/55; PULSE 115; RESP 15; TEMP 98.6
[2018-03-10] MEDS: Senna/Docusate Sodium 8.6/50 MG Tablet PO SCH (08:00)
--- NOTE | 2018-03-10 09:52 | P.TTN ---
- Patient Problems Problems: 1. Discharge planning 2. Medication compliance 3. Knowledge deficit 4. Lack of coping skills - Progress Toward Goals Provider Present: Dr. Willie Hoyt (Patient was catatonic, patient appears to be improving but remains sedated and in need of further stabilization. Patient meets criteria for discharge.) Psychiatric Counselors Present: Noe Bowen Jr., [facility] (Patient will go to [facility] assisted living facility when stable. Counselor has arranged a safe discharge plan to [facility] assisted living [facility]. [employer] will provide transportation at 2:30 PM to the residence at [address] [place] [address], [id number].) Group Spec/RT/OT/COLBERT Present: SAYRA Pierre (Patient attends select groups.), SAYRA Morin (Patient attends select groups but has difficulty tolerating most activities.) - Documentation Teaching Recipient: Patient
--- NOTE | 2018-03-10 14:55 | P.DSPSY ---
Psychiatry Discharge Summary Inpatient Psychiatric care?: Yes Advance Directives: No Mental Health Advance Directive: No Health Care Proxy: No - Admission Admission Date: February 26, 2018 10:16 Brief History: The patient is a 32-year-old -[place] woman, single, unemployed, domiciled in [facility], supported by [facility], with a significant psychiatric history of schizophrenia, previous psychiatric admissions, she has been seeing in the [facility] twice in the last month, she is on Seroquel 200 mg, no significant medical history, who presents to the emergency department under [facility] act. According to the [facility] act report the patient is unable to remember her name, does not know where she is or what year it is. She is not currently taking her prescribed medications. In the ER given her disruptive behavior, aggressiveness, agitation and poor sensitivity to verbal de-escalation, the patient had to be medicated with Haldol 5 mg IM, Ativan 2 mg IM, and posteriorly with olanzapine 10 mg IM. On my psychiatric evaluation I find the patient that is quite sedated, unable to provide any meaningful psychiatric information for the psychiatric assessment. Sucked and wet with urine and face. Nurses reported that the patient has being secluded, very paranoid, nonverbal, but at times will say that she feels afraid like other people are going to kill her. PPHx: Schizophrenia, bipolar disorder, multiple psychiatric admissions, the patient is Seroquel 200 mg PMHx: No medical history Family HX: Patient denies family psychiatric history Substance Hx: Patient denies the use of illegal drugs or alcohol, U tox is negative Social Hx: -[place] lady who lives in the [facility], single, unemployed, on SSI Tobacco Use In Past 30 Days: Yes How Often Do You Have a Drink Containing Alcohol: Never Hospital Course: The patient is a 32-year-old -[place] woman, single, unemployed, domiciled in [facility], supported by [facility], with a significant psychiatric history of schizophrenia, previous psychiatric admissions, she has been seeing in the [facility] twice in the last month, she is on Seroquel 200 mg, no significant medical history, who presents to the emergency department under [facility] act. Patient was admitted to a locked, inpatient psychiatric unit. Appropriate precautions were in place throughout patient's hospital stay. Patient was seen and examined on the unit by psychiatry. Psychotropic medications were adjusted. There was no evidence of any suicidality or homicidality on the inpatient unit. Patient's mood, catatonia and psychosis improved with the benefit of psychopharmacological treatment and had no behavioral disturbance since admission. Patient was noted to have reached stable mood, noted to participate and engage in treatment and interact with staff adequately. Patient noted to be future oriented with plans to continue treatment and outpatient follow-up appointments for continuity of care. Counselor has arranged discharge plan which patient will be discharged to an assisted living facility. On the day of discharge: Patient seen and examined; chart reviewed. Case discussed with nurse and counselor. No behavioral issues overnight. On my examination today, the patient denies any suicidal homicidal ideation, intent or plan on direct questioning and contracts for safety. Patient denies any perceptional disturbances and no delusional material verbalized today. Patient denies any side effects from medication and has understanding of medication regimen and education. No physical complaints. Suicide and violence risk assessment on day of discharge both suggest lower imminent risk, and the patient's level of function is adequate for plan level of outpatient care. Patient has maximized benefit from this inpatient psychiatric hospital stay and will be discharged with discharge plan as arranged by counselor. Patient advised to return to psychiatric emergency room for any concerning psychiatric symptoms. Patient agrees with plan. - Discharge Discharge Date: 03/10/18 - Discharge Diagnosis (1) Schizophrenia Code(s): F20.9 - Schizophrenia, unspecified Status: Acute Discharge Disposition: Assisted Living Facility - Discharge Instructions Discharge Diet: Regular Diet Activities You Can Perform: Regular- No Restrictions - Discharge Time > 30 minutes Mental Status Examination Appearance: Appropriate Consciousness: Alert Orientation: x4 Motor Activity: Normal gait Speech: Unremarkable Language: Adequate Fund of Knowledge: Adequate Attention and Concentration: Adequate Memory: Unremarkable Mood: Appropriate Affect: Appropriate Thought Process & Associations: Other ([facility]) Thought Content: Appropriate Hallucination Type: None Delusion Type: None Suicidal Ideation: No Suicidal Plan: No Suicidal Intention: No Homicidal Ideation: No Homicidal Plan: No Homicidal Intention: No Insight: Fair Judgment: Impulsive Discharge/Advance Care Plan - Results Vital Signs: Last Vital Signs Temp 98.6 F 03/10/18 06:11 Pulse 115 H 03/10/18 06:11 Resp 15 03/10/18 06:11 BP 100/55 L 03/10/18 06:11 Pulse Ox 98 03/10/18 06:11 Lab Results: Laboratory Results Hemoglobin A1c 5.2 % (4.3-6.0) 02/27/18 07:48 Triglycerides 126 mg/dL (42-150) 02/27/18 07:48 Cholesterol 214 mg/dL (120-200) H 02/27/18 07:48 LDL Cholesterol, Calc 147 mg/dL (0-99) H 02/27/18 07:48 HDL Cholesterol 41.9 mg/dL (40.0-60.0) 02/27/18 07:48 TSH 0.802 uIU/mL (0.358-3.740) 02/25/18 15:12 Summary of Procedures: none Imaging: ITS Impressions Ankle X-Ray 03/02/18 00:00 CONCLUSION: No fracture or subluxation of the right ankle. Knee X-Ray 03/02/18 00:00 CONCLUSION: No fracture or subluxation of the left knee. Pending Results: None - Medications Number of antipsychotic medications at discharge: 1 - Discharge Care Plan Goals to Promote Your Health: * To prevent worsening of your condition and complications * To maintain your health at the optimal level Directions to Meet Your Goals: Take your medications as prescribed Follow your dietary instruction Follow activity as directed Keep your appointments as scheduled Take your immunizations and boosters as scheduled If your symptoms worsen call your PCP, if no PCP go to Urgent Care Center or Emergency Room For 17/11 questions related to your inpatient stay or results of tests pending at discharge, please contact Dr. Ari Hoyt MD at Smoking is Dangerous to Your Health. Avoid second hand smoking
== END 2018-03-10 15:20 ==
LOC: NEPJ 14:54 → NEDA 02-26 10:16 → H270 02-26 13:48 → H260 03-02 11:21
PROVIDERS: ADMIT Student in an Organized Health Care Education/Training Program; ATTEND Student in an Organized Health Care Education/Training Program